=== PATIENT | male | born 1980 | race Caucasian/White ===

== ENCOUNTER 2019-07-14 10:15 | Outpatient (CLI) | payer BC | END 2019-07-14 23:59 | disposition home or self-care (01) | LOC: WOU 10:15 | PROVIDERS: ATTEND Podiatrist Foot & Ankle Surgery | DX: M21.072 Valgus deformity, not elsewhere classified, left ankle (principal); M21.70 Unequal limb length (acquired), unspecified site; S82.892S Other fracture of left lower leg, sequela; W10.8XXS Fall (on) (from) other stairs and steps, sequela; R60.0 Localized edema; M79.662 Pain in left lower leg; S92.009 Unspecified fracture of unspecified calcaneus; X58.XXXD Exposure to other specified factors, subsequent encounter | CPT/HCPCS: G0463 ==

== ENCOUNTER 2020-06-12 14:35 | Outpatient (CLI) | payer BC | END 2020-06-12 23:59 | disposition home or self-care (01) | LOC: WOU 14:35 | PROVIDERS: ATTEND Podiatrist Foot & Ankle Surgery | DX: M21.072 Valgus deformity, not elsewhere classified, left ankle (principal); B35.1 Tinea unguium; L84 Corns and callosities; M79.672 Pain in left foot | CPT/HCPCS: G0463 ==